=== PATIENT | female | born 1935 | race Caucasian/White ===

== ENCOUNTER → 2023-09-17 | Outpatient (CLI) | payer MEDICARE, BC | LOC: RAD 08:48 | DX: M47.816 Spondylosis without myelopathy or radiculopathy, lumbar region (principal); S72.031A Displaced midcervical fracture of right femur, initial encounter for closed fracture; X58.XXXA Exposure to other specified factors, initial encounter ==

== ENCOUNTER → 2024-04-21 | Outpatient (CLI) | payer MEDICARE, BC ==
[~2024-04-21] VITALS: Ht 160 cm; Wt 48.2 kg
[~2024-04-21] MED LIST: CALCIUM500 M1 PO; CEPHALEXIN500 M1 PO; Lidocaine 2% Jelly 5 GM TUBE TOP ONE; MULTIVITAMIN1 EACH PO; VITAMIN C 250250 MG PO
[2024-04-21 12:26] VITALS: BP 141/73
== END ==
LOC: WOUND 12:03
DX: S81.019A Laceration without foreign body, unspecified knee, initial encounter (principal)

== ENCOUNTER → 2024-04-28 | Outpatient (CLI) | payer MEDICARE, BC ==
[~2024-04-28] VITALS: Ht 160 cm; Wt 48.2 kg
[2024-04-28 14:07] VITALS: BP 160/77
--- NOTE | 2024-04-28 14:09 | NUR ---
SEE PROVIDER NOTE FROM Jose Roberto FUNES APRN
== END ==
LOC: WOUND 13:47
DX: S81.019A Laceration without foreign body, unspecified knee, initial encounter (principal)

== ENCOUNTER → 2024-05-04 | Outpatient (CLI) | payer MEDICARE, BC ==
[~2024-05-04] VITALS: Ht 160 cm; Wt 48.2 kg
[~2024-05-04] MED LIST changes: -Lidocaine 2% Jelly 5 GM TUBE TOP ONE
[2024-05-04 10:06] VITALS: BP 176/82
== END ==
LOC: WOUND 09:53
DX: S81.019A Laceration without foreign body, unspecified knee, initial encounter (principal)